=== PATIENT | male | born 2005 | race Caucasian/White ===

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

== ENCOUNTER 2024-01-21 10:51 | Emergency (ER) | payer MEDICAID ==
[~2024-01-21] VITALS: Ht 177.8 cm; Wt 65.0 kg
[~2024-01-21 10:51] MED LIST changes: +ACET600C PO; +BACL20TA PO; +CLIN300C71 PO; +DOCU100C40 PO; +FLAX10007 PO; +HYDR-3686 PO; +KRIL1CAP PO; +MULT-1074 PO; +SENN-263 PO; +TIZA-189 PO; +TRAZ-251 PO; +VIT500LI PO
[2024-01-21 11:41] VITALS: BP 92/55; PULSE 56; O2SAT 97
[2024-01-21 12:33] VITALS: RESP 18; TEMP 98.6
== END 2024-01-21 12:35 | disposition home or self-care (01) ==
LOC: ER 10:52
DX: S09.90XA Unspecified injury of head, initial encounter (principal); Z88.0 Allergy status to penicillin; Z88.2 Allergy status to sulfonamides; Z79.899 Other long term (current) drug therapy; Z79.1 Long term (current) use of non-steroidal anti-inflammatories (NSAID); Z79.2 Long term (current) use of antibiotics; W19.XXXA Unspecified fall, initial encounter; Y93.89 Activity, other specified; Y92.89 Other specified places as the place of occurrence of the external cause; Y99.8 Other external cause status
CPT/HCPCS: 99284

== ENCOUNTER 2024-04-05 19:44 | Emergency (ER) | payer MEDICAID ==
[~2024-04-05] VITALS: Ht 172.7 cm; Wt 67.3 kg
[2024-04-05 19:56] VITALS: BP 115/71; PULSE 89; RESP 16; TEMP 97.9; O2SAT 97
[2024-04-05 20:02] LABS: BASOPHILS # (AUTO) 0.1 X10'3 (0-0.2); BASOPHILS % (AUTO) 0.5 % (0-1); EOSINOPHILS # (AUTO) 0.1 X10'3 (0-0.9); EOSINOPHILS % (AUTO) 0.5 % (0-6); HEMATOCRIT 45.1 % (42.0-52.0); HEMOGLOBIN 15.1 g/dl (14.0-17.9); LYMPHOCYTES # (AUTO) 2.1 X10'3 (1.1-4.8); LYMPHOCYTES % (AUTO) 19.8 % (21-51); MEAN CORPUSCULAR HEMOGLOBIN 27.3 PG (27.0-31.0); MEAN CORPUSCULAR HGB CONC 33.4 g/dL (33.0-36.5); MEAN CORPUSCULAR VOLUME 81.7 FL (78-98); MEAN PLATELET VOLUME 8.7 FL (7.4-10.4); MONOCYTES # (AUTO) 0.8 X10'3 (0-0.9); MONOCYTES % (AUTO) 7.4 % (2-12); NEUTROPHILS # (AUTO) 7.5 X10'3 (1.8-7.7); NEUTROPHILS % (AUTO) 71.8 % (42-75); PLATELET COUNT 213 X10'3 (140-440); RED BLOOD COUNT 5.53 X10'6 (4.70-6.10); RED CELL DISTRIBUTION WIDTH 13.4 % (11.5-14.5); WHITE BLOOD COUNT 10.5 X10'3 (4.5-11.0)
[2024-04-05 20:22] LABS: ALANINE AMINOTRANSFERASE 19 U/L (12-78); ALBUMIN 4.3 G/DL (3.4-5.0); ALBUMIN/GLOBULIN RATIO 1.1 (1.1-1.5); ALKALINE PHOSPHATASE 87 IU/L (20-180); ANION GAP 8 (8-16); ASPARTATE AMINO TRANSFERASE 26 U/L (10-37); BILIRUBIN,TOTAL 0.6 MG/DL (0.1-1.0); BLOOD UREA NITROGEN 20 MG/DL (7-18); CALCIUM 9.7 MG/DL (8.5-10.1); CHLORIDE 104 MMOL/L (99-107); CREATININE 1.05 MG/DL (0.60-1.10); GLUCOSE 98 MG/DL (70-104); POTASSIUM 4.2 MMOL/L (3.5-5.1); SODIUM 140 MMOL/L (135-145); TOTAL CARBON DIOXIDE 27.7 MMOL/L (24-32); TOTAL PROTEIN 8.1 G/DL (6.4-8.2); eCRCL 108 ML/MIN; eGFR > 90 ML/MIN
[2024-04-05] MEDS ORDERED: MELA5TAB12 PO (20:28)
[2024-04-05] MEDS ORDERED: CARB1TAB44 PO (20:28)
[2024-04-05] MEDS ORDERED: SIME80TA15 PO (20:28)
[2024-04-05] MEDS ORDERED: POLY17PO10 PO (20:28)
[2024-04-05] MEDS ORDERED: ACET-3447 (20:28)
[2024-04-05] MEDS ORDERED: MELA1LIQ PO (20:28)
[2024-04-05] MEDS ORDERED: BACL20TA PO (20:28)
[2024-04-05] MEDS ORDERED: PROP10TA10 PO (20:28)
[2024-04-05 20:32] LABS: ETHANOL < 10 MG/DL (<10); THYROID STIMULATING HORMONE 2.03 ulU/ml (0.34-4.50)
[2024-04-05] MEDS ORDERED: baclofen 10mg tablet PO PRN (21:35)
== END 2024-04-05 22:38 | disposition home or self-care (01) ==
LOC: ER 19:44
DX: R45.7 State of emotional shock and stress, unspecified (principal); Z20.822 Contact with and (suspected) exposure to COVID-19; Z88.0 Allergy status to penicillin; Z88.2 Allergy status to sulfonamides; Z79.899 Other long term (current) drug therapy; Z79.1 Long term (current) use of non-steroidal anti-inflammatories (NSAID); Z79.2 Long term (current) use of antibiotics
CPT/HCPCS: 36415; 80053; 80320; 84443; 85025; 87811; 99284

== ENCOUNTER 2024-05-23 14:29 | Outpatient (CLI) | payer MEDICAID ==
[~2024-05-23 14:29] MED LIST changes: +ACET-3447; -AZIT200S47 PO; +CARB1TAB44 PO; +MELA1LIQ PO; +MELA5TAB12 PO; +POLY17PO10 PO; +PROP10TA10 PO; +SIME80TA15 PO
== END 2024-05-23 23:59 | disposition home or self-care (01) ==
LOC: RAD 14:29
PROVIDERS: ATTEND Pediatrics Sports Medicine
DX: S42.201A Unspecified fracture of upper end of right humerus, initial encounter for closed fracture (principal); M25.511 Pain in right shoulder; X58.XXXA Exposure to other specified factors, initial encounter; Y93.89 Activity, other specified; Y92.89 Other specified places as the place of occurrence of the external cause; Y99.8 Other external cause status
CPT/HCPCS: 73200

== ENCOUNTER 2024-10-09 21:10 | Emergency (ER) | payer MEDICAID ==
[~2024-10-09] VITALS: Ht 182.9 cm; Wt 77.3 kg
[~2024-10-09 21:10] MED LIST changes: -SENN-263 PO; +SENN-360 PO
[2024-10-09 21:15] VITALS: BP 140/90; PULSE 88; TEMP 98.7; O2SAT 98
[2024-10-09 22:17] VITALS: RESP 15
[2024-10-09] MEDS: QUEtiapine 25mg tablet PO SCH (22:54)
== END 2024-10-09 22:59 | disposition home or self-care (01) ==
LOC: ER 21:11
DX: S00.93XA Contusion of unspecified part of head, initial encounter (principal); Z88.0 Allergy status to penicillin; Z88.1 Allergy status to other antibiotic agents; Z88.2 Allergy status to sulfonamides; X58.XXXA Exposure to other specified factors, initial encounter; Y93.89 Activity, other specified; Y92.89 Other specified places as the place of occurrence of the external cause; Y99.8 Other external cause status
CPT/HCPCS: 99283

== ENCOUNTER 2024-10-30 09:22 | Emergency (ER) | payer MEDICAID ==
[~2024-10-30] VITALS: Ht 185.4 cm; Wt 84.1 kg
[2024-10-30 12:21] LABS: BILIRUBIN,URINE NEGATIVE (Neg); CLARITY,URINE CLEAR (Clear); COLOR,URINE YELLOW (Yellow); GLUCOSE, URINE NEGATIVE (Neg); KETONES,URINE NEGATIVE (Neg); LEUKOCYTE ESTERASE ,URINE NEGATIVE (Neg); NITRITES, URINE NEGATIVE (Neg); OCCULT BLOOD,URINE NEGATIVE (Neg); PROTEIN,URINE NEGATIVE (Neg); UROBILINOGEN,URINE 0.2 E.U/dL (0.2-1.0)
[2024-10-30 12:26] LABS: UA COLLECTION TYPE VOIDED
[2024-10-30 12:50] VITALS: BP 131/46; PULSE 93; RESP 16; TEMP 98.4; O2SAT 99
== END 2024-10-30 13:12 | disposition home or self-care (01) ==
LOC: ER 09:23
DX: J34.89 Other specified disorders of nose and nasal sinuses (principal); R51.9 Headache, unspecified; Z88.0 Allergy status to penicillin; Z88.2 Allergy status to sulfonamides; Z79.899 Other long term (current) drug therapy; W22.01XA Walked into wall, initial encounter; Y93.89 Activity, other specified; Y92.89 Other specified places as the place of occurrence of the external cause; Y99.8 Other external cause status
CPT/HCPCS: 36415; 70486; 81003; 86355; 99284

== ENCOUNTER 2024-10-30 23:50 | Emergency (ER) | payer MEDICAID ==
[~2024-10-30] VITALS: Ht 175.3 cm; Wt 65.0 kg
[2024-10-30 23:52] VITALS: BP 125/86; PULSE 100; RESP 18; TEMP 98.2; O2SAT 98
== END 2024-10-31 02:05 | disposition left against medical advice (07) ==
LOC: ER 23:50
DX: R51.9 Headache, unspecified (principal); Z53.21 Procedure and treatment not carried out due to patient leaving prior to being seen by health care provider

== ENCOUNTER 2025-02-12 19:22 | Emergency (ER) | payer MEDICAID ==
[~2025-02-12] VITALS: Ht 180.3 cm; Wt 68.2 kg
--- NOTE | 2025-02-12 20:13 | Physician Documentation ---
History of Present Illness ~ Chief Complaint: See Chief Complaint Stated Complaint: "MED CHANGE PT FEELS UNSTABLE" Time Seen by MD: 20:52 OK to notify your PCP?: Yes Primary Medical Doctor: NO PMD Source: patient Mode of Arrival: POV Exam Limitations: no limitations HPI 19-year-old male with history of cerebral palsy and wheelchair-bound was brought in by merary for increased agitation in the home. Patient denies any suicidal ideation or homicidal ideation and is not sure why his parents brought him here. Step dad reports that he has made suicidal statements and has been punching things. Additional note by Darrius Marin, DO: I took over the care of this patient from previous physician. I reviewed any previous notes available, obtain my own history, review of systems and physical examination was performed by myself. This is a 19-year-old gentleman who comes in today and requests get checked out for schizophrenia. According to his dad has been getting more violent, more agitated, this got worse after he smoked marijuana on 02/05/2025, it week ago. He has been acting out, punching things, making suicidal statements asking parents to shoot him. He states that it if the parents called the police the patient told the parents that he wants to get shot by the police. He denies any somatic complaints. He is noncompliant with his medications. Medication Reconciliation Allergies: Coded Allergies: Penicillins (Verified Allergy, Intermediate, Full Body Rash, Vomiting, Diarrhea, 10/30/24) sulfamethoxazole (Unverified Allergy, Unknown, FEVER, 10/30/24) trimethoprim (Unverified Allergy, Unknown, FEVER, 10/30/24) Scheduled Acetylcysteine (Nac), 1 CAP PO DAILY, (Reported) Baclofen (Baclofen), 1 TAB PO TID, (Reported) Baclofen (Baclofen), 1 TAB PO Q8H, (Reported) Clindamycin HCl (Clindamycin HCl), 1 CAP PO BID, (Reported) Docusate Sodium (Docusate Sodium), 1 CAP PO DAILY, (Reported) Flaxseed (Flaxseed Oil), 1 CAP PO DAILY, (Reported) Krill/Om3/Dha/Epa/Om6/Lip/Astx (Krill Oil 1,000 Mg Softgel), 1 EACH PO DAILY, (R eported) Melatonin (Melatonin), 1 TAB PO HS, (Reported) Multivitamin (Multi-Vitamin Daily), 1 TAB PO DAILY, (Reported) Polyethylene Glycol 3350* (Miralax*), 1 PACKET PO HS, (Reported) Propranolol Hcl (Propranolol Hcl), 1 TAB PO Q12H, (Reported) Sennosides (Senna), 2 TAB PO HS, (Reported) Simethicone (Simethicone), 1 TAB PO Q8H, (Reported) Tizanidine Hcl (Zanaflex), 1 TAB PO BID, (Reported) Trazodone HCl (Trazodone HCl), 1 TAB PO HS, (Reported) Vit C/Ascorbate Ca/Ascorb Sod (Vitamin C 500 Mg/15 Ml Liquid), 500 MG PO DAILY, (Reported) Scheduled PRN Hydroxyzine Hcl (Atarax), 1 TAB PO Q12H PRN for for anxiety/agitation, (Reported) Miscellaneous Medications Acetaminophen (8Hr Arthritis Pain), (Reported) Carbidopa/Levodopa (Carbidopa-Levo 25-100 Mg Odt), 1 EACH PO, (Reported) Divalproex ER* (Depakote ER*), (Reported) Melatonin (Melatonin), 1 MG PO, (Reported) Past Medical History 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 Physical Exam Vital Signs: RN Vital Signs have been reviewed: Yes, Temperature: 98.0, Heart Rate: 64, Respiratory Rate: 16, BP: 132/71, Pulse Oximetry: 99 Oxygen Flow Rate: 0 Pulse Oximetry Reflects: adequate oxygenation Physical Exam Physical examination: GENERAL: Awake, alert, oriented, GCS 15, no apparent distress, non-toxic appearing, answers questions, follows commands appropriately. HEENT: Atraumatic, normocephalic, pupils equal, extraocular muscles intact Active gross movements, sclerae anicteric, mucus membranes moist, no stridor. NECK: Midline, no JVD. Old tracheostomy, well healed. CARDIOVASCULAR: Good skin perfusion without evidence of pallor, mottling. PULMONARY: Nonlabored, symmetric chest rise, no audible wheezing, no accessory muscle use, no respiratory distress, speaking in full sentences. GASTROINTESTINAL: Not distended. NEUROLOGIC: Lucid with normal mental status. Normal facial symmetry. Moves all extremities symmetrically and with purpose. No truncal ataxia. Speech is fluid without evidence of dysarthria or aphasia, no focal deficits appreciated. EXTREMITIES: Acute deformities Skin: warm, dry PSYCHIATRIC: Normal affect, normal insight, normal concentration. Focused exam: [] Spasticity noted. General Appearance General: Alert, no distress. HEENT: No injection, moist mucous membranes. Neck: Full range of motion. Respiratory: No respiratory distress, equal chest rise and fall. Chest: No accessory muscle use. Cardiovascular: Regular rate and rhythm. Gastrointestinal: Nondistended. Extremities: Normal range of motion, no deformity. Neurologic: Oriented x4. Psychiatric: Normal mood and affect. Skin: Normal color, warm and dry. Progress Progress Note Doctor Christa Jamil consulted with mental health who agree that patient has no suicidal or homicidal risk. They are recommending discharge. Results/Orders Reviewed/noted all lab results: Yes Results/Orders Medications Received in ER Medications (Trade) Dose Ordered Sig/Judy Route PRN Reason Start Time Stop Time Status Last Admin Dose Admin (Sinemet 25-100MG tablet) 1 tab DAILY PO 02/13/25 08:00 02/13/25 08:28 1 TAB Vital Signs 02/12/25 02/12/25 02/13/25 02/13/25 19:36 22:00 06:08 06:59 Temp 98.0 97.8 Pulse 64 96 Resp 16 16 16 14 B/P (MAP) 132/71 121/72 (88) Pulse Ox 99 98 O2 Flow Rate 0 0 Laboratory Tests Test 02/12/25 21:44 02/12/25 23:04 02/13/25 00:08 White Blood Count 6.0 Red Blood Count 5.52 Hemoglobin 15.1 Hematocrit 45.6 Mean Corpuscular Volume 82.7 Mean Corpuscular Hemoglobin 27.5 Mean Corpuscular Hemoglobin Concent 33.2 Red Cell Distribution Width 13.6 Platelet Count 172 Mean Platelet Volume 9.3 Neutrophils (%) (Auto) 55.1 Lymphocytes (%) (Auto) 33.7 Monocytes (%) (Auto) 9.6 Eosinophils (%) (Auto) 1.0 Basophils (%) (Auto) 0.6 Neutrophils # (Auto) 3.3 Lymphocytes # (Auto) 2.0 Monocytes # (Auto) 0.6 Eosinophils # (Auto) 0.1 Basophils # (Auto) 0.0 CBC Comment Sodium Level 142 Potassium Level 4.3 Chloride Level 104 Carbon Dioxide Level 28.2 Anion Gap 10 Blood Urea Nitrogen 16 Creatinine 0.99 Estimated GFR/1.73 m2 > 90 BUN/Creatinine Ratio 16.2 Glucose Level 95 Calcium Level 9.1 Albumin 4.0 Thyroid Stimulating Hormone (TSH) 3.47 Chemistry Comments Ethyl Alcohol Level < 10 Urine Specimen Description Urinal Urine Color Yellow Urine Clarity Clear Urine pH 6.0 Urine Specific Clune 1.010 Urine Protein Negative Urine Glucose (UA) Negative Urine Ketones Negative Urine Occult Blood Negative Urine Nitrite Negative Urine Bilirubin Negative Urine Urobilinogen 0.2 Urine Leukocyte Esterase Negative Volume Urine Centrifuged 10 ml Urine Comment Urine Opiates Screen Negative Urine Methadone Screen Negative Urine Fentanyl Screen Negative Urine Barbiturates Screen Negative Urine Phencyclidine Screen Negative Urine Amphetamines Screen Negative Urine Benzodiazepines Screen Negative Urine Cocaine Screen Negative Urine Cannabinoids Screen Negative Drug Screen Comment SARS-CoV-2 Antigen (Rapid) Negative Medical Decision Making Additional info obtained from: old records (d/c summary 08/29) Findings Facility Status: ED Holds, [facility] process The plan was discussed with the patient, who demonstrates clear understanding of the plan and is in agreement with the plan unless otherwise noted in the chart. All questions have been answered, all concerns were addressed unless otherwise documented. I was available throughout their ED stay for frequent reassessment and questions. Differential Diagnoses (considered and possible or likely): [Suicidal ideation, schizoaffective disorder, less likely thyrotoxicosis, less likely hypoglycemia] ??Differential Diagnoses (considered and unlikely, not requiring evaluation currently): [Denies somatic complaints at this time] MDM Data Please see HPI for the following: Independent Historians and external Records Review. Historian: [Patient] Independent Historians: ?[Father] Medication Management: [Reviewed medication list] Social History and determinants: [Reviewed] Please see the body of the note for the following: Any independent interpretations of ECG, imaging studies. All vitals signs/haemodynamics, ordered tests were independently reviewed and interpreted by myself. Nursing triage complaint and vitals reviewed, additional nursing notes were reviewed as available and I agree unless otherwise noted or documented in contradiction in the chart Vital Signs: Independently reviewed Labs: Independently interpreted Imaging: Independently interpreted Old Medical Records: Independently reviewed, see HPI for relevant summary and information Pulse Oximetry: [95%] interpreted as [normal on room air] by me Additionally notably showing: [Hemodynamically stable. Unremarkable laboratory workup] Tests considered but not ordered include: [Neither imaging and EKG appear to be necessary at this time] Social Determinants of Health Impact: Patient was evaluated in [facility], or [facility] [place] to healthcare due to below par ratio of patient to medical providers. 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 See EMR for details Consideration for Hospitalization/Escalation/Deescalation of Care: Admission for observation has been considered, [however the patient is able to tolerate p.o., their symptoms are controlled, they are able to rely on oral medications, and their chief complaint/diagnosis can be managed on outpatient basis.] ?ED Course:?[Brief episodes of intermittently agitation. Palliated with the medication. The gentleman is medically cleared for psychiatric evaluation.] ?Shared decision making:?[] Code status:?FULL Please see the full Electronic Medical Record for full details of nursing documentation, medications list, other records of complete past medical history and conditions, vital signs, laboratory studies, and any radiologic study interpretations by radiologists. Portions of this note were completed using Fullbridge dictation software and as a result there may exist minor errors in spelling. I have reviewed elements of past family and social history and agree as included in note. Departure Disposition: HOME / SELF CARE / HOMELESS Impression: Primary Impression: Suicidal ideation Additional Impression: History of cerebral palsy Additional Instructions: Please follow up with [facility] at You should also follow up with your neurology team at [facility] Please return if you develop any suicidal thoughts or feel unsafe Referrals: NO PRIMARY CARE PROVIDER (PCP) Additional Comment Medical Screen Exam This patient recieved a medical screening examination. After reviewing the individual's medical complaints with presenting symptoms and performing an appropriate physical examination, it was determined that no immediate life- threatening emergency medical condition is present. This individual is also not a women having contractions. Signature Scribe Signature: No scribe Attestation: This note accurately reflects clinical decisions, work performed by myself, DO ISABEL Salcedo ASHLEY D [facility] Feb 12, 2025 20:13 DARRIUS MARIN DO Feb 12, 2025 21:35 DARRIUS LARSEN MD Feb 13, 2025 10:34
[2025-02-12] MEDS ORDERED: magnesium Cl slow-release 64mg tablet PO SCH (21:45)
[2025-02-12] MEDS ORDERED: amantadine 100 MG capsule PO SCH (21:45)
[2025-02-12 22:07] LABS: BASOPHILS % (AUTO) 0.6 % (0-1); EOSINOPHILS # (AUTO) 0.1 X10'3 (0-0.9); HEMATOCRIT 45.6 % (42.0-52.0); HEMOGLOBIN 15.1 g/dl (14.0-17.9); LYMPHOCYTES % (AUTO) 33.7 % (21-51); MEAN CORPUSCULAR HEMOGLOBIN 27.5 PG (27.0-31.0); MEAN CORPUSCULAR HGB CONC 33.2 g/dL (33.0-36.5); MEAN CORPUSCULAR VOLUME 82.7 FL (78-98); MEAN PLATELET VOLUME 9.3 FL (7.4-10.4); MONOCYTES # (AUTO) 0.6 X10'3 (0-0.9); MONOCYTES % (AUTO) 9.6 % (2-12); NEUTROPHILS # (AUTO) 3.3 X10'3 (1.8-7.7); NEUTROPHILS % (AUTO) 55.1 % (42-75); PLATELET COUNT 172 X10'3 (140-440); RED BLOOD COUNT 5.52 X10'6 (4.70-6.10); RED CELL DISTRIBUTION WIDTH 13.6 % (11.5-14.5)
[2025-02-12] MEDS: baclofen 10mg tablet PO PRN (22:14)
[2025-02-12] MEDS: amantadine 100 MG capsule PO ONE (22:14)
[2025-02-12] MEDS: magnesium oxide 400mg tablet PO ONE (22:15)
[2025-02-12] MEDS: Melatonin 3mg tablet PO SCH (22:15)
[2025-02-12] MEDS: OLANZapine 5mg rapidly disint. tablet PO ONE (22:15)
[2025-02-12] MEDS: traZODone 50mg tablet PO SCH (22:16)
[2025-02-12] MEDS: divalproex sod 250mg ER (24-hour) tablet PO SCH (22:16)
[2025-02-12] MEDS ORDERED: carbidoba-levodopa 25-100mg tablet PO SCH (22:25)
[2025-02-12] MEDS: carbidoba-levodopa 25-100mg tablet PO ONE (22:42)
[2025-02-12 22:54] LABS: ANION GAP 10 (8-16); BLOOD UREA NITROGEN 16 MG/DL (7-18); BUN/CREATININE RATIO 16.2 (10.0-20.0); CALCIUM 9.1 MG/DL (8.5-10.1); CHLORIDE 104 MMOL/L (99-107); CREATININE 0.99 MG/DL (0.60-1.10); GLUCOSE 95 MG/DL (70-104); POTASSIUM 4.3 MMOL/L (3.5-5.1); SODIUM 142 MMOL/L (135-145); THYROID STIMULATING HORMONE 3.47 ulU/ml (0.34-4.50); TOTAL CARBON DIOXIDE 28.2 MMOL/L (24-32); eGFR > 90 ML/MIN
[2025-02-12 22:55] LABS: ETHANOL < 10 MG/DL (<10)
[2025-02-12 23:51] LABS: URINE AMPHETAMINE SCREEN NEGATIVE (Neg); URINE BARBITUATE SCREEN NEGATIVE (Neg); URINE BENZODIAZEPINES SCREEN NEGATIVE (Neg); URINE CANNABINOID SCREEN NEGATIVE (Neg); URINE COCAINE SCREEN NEGATIVE (Neg); URINE METHADONE SCREEN NEGATIVE (Neg); URINE OPIATE SCREEN NEGATIVE (Neg); URINE PHENCYCLIDINE SCREEN NEGATIVE (Neg)
[2025-02-13] LABS: BILIRUBIN,URINE NEGATIVE (Neg); CLARITY,URINE CLEAR (Clear); COLOR,URINE YELLOW (Yellow); GLUCOSE, URINE NEGATIVE (Neg); KETONES,URINE NEGATIVE (Neg); LEUKOCYTE ESTERASE ,URINE NEGATIVE (Neg); NITRITES, URINE NEGATIVE (Neg); OCCULT BLOOD,URINE NEGATIVE (Neg); PROTEIN,URINE NEGATIVE (Neg); UROBILINOGEN,URINE 0.2 E.U/dL (0.2-1.0)
[2025-02-13 00:14] LABS: UA COLLECTION TYPE URINAL
[2025-02-13] MEDS ORDERED: DIVA500T9 (07:09)
[2025-02-13] MEDS: carbidoba-levodopa 25-100mg tablet PO SCH (08:28)
[2025-02-13 12:00] VITALS: BP 119/72; PULSE 68; RESP 14; TEMP 98.2; O2SAT 98
== END 2025-02-13 12:10 | disposition home or self-care (01) ==
LOC: ER 19:23
DX: R45.851 Suicidal ideations (principal); G80.9 Cerebral palsy, unspecified; Z20.822 Contact with and (suspected) exposure to COVID-19; Z88.0 Allergy status to penicillin; Z88.1 Allergy status to other antibiotic agents; Z88.2 Allergy status to sulfonamides
CPT/HCPCS: 36415; 80048; 80305; 80320; 81003; 84443; 85025; 87811; 99284